=== PATIENT | female | born 2000 | race Caucasian/White ===

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

== ENCOUNTER → 2021-07-09 | Outpatient (CLI) | payer MEDICAID ==
[~2021-07-09] MED LIST changes: +METHACHOLINE CHLORIDE 100MG/VIAL IH ONE; +RT-ALBUTEROL SULF 2.5 MG/3 ML PRE-MIX VIAL INH ONE
--- NOTE | 2021-07-09 12:25 | Diagnostic Imaging Report ---
INDICATION: Shortness of air and chest discomfort. TIME OF EXAM: 10:39 AM Correlation is made with prior chest 12/20/2020. Heart size normal. Lungs appear to be clear although exposure is somewhat dark and overpenetrated. No effusion or pneumothorax is seen. IMPRESSION: No acute cardiopulmonary process is detected. Dictated by: Dictated on workstation # [id number]
== END ==
LOC: RT 08:00
PROVIDERS: ATTEND Internal Medicine Critical Care Medicine
DX: I27.20 Pulmonary hypertension, unspecified (principal)
CPT/HCPCS: 71046; 93306; 94070; 95070

== ENCOUNTER 2021-07-14 23:50 | Emergency (ER) | payer MEDICAID ==
[~2021-07-14] VITALS: Ht 162.5 cm; Wt 61.2 kg
[2021-07-14 23:50] VITALS: BP 104/79
[~2021-07-14 23:50] MED LIST changes: -METHACHOLINE CHLORIDE 100MG/VIAL IH ONE; -RT-ALBUTEROL SULF 2.5 MG/3 ML PRE-MIX VIAL INH ONE
[2021-07-15] MEDS ORDERED: ONDANSETRON 4 MG/2 ML (SDV) Z0FRAN IVP ONE (00:15)
[2021-07-15] MEDS ORDERED: FAMOTIDINE 20MG/2ML IV (PEPCID) IVP ONE (00:15)
[2021-07-15] MEDS ORDERED: LORazepam INJ 2 MG/ML (ATIVAN) VIAL IVP ONE (00:15)
[2021-07-15] MEDS ORDERED: NS IV 1000 ML 1,000 ML IV SCH (00:15)
--- NOTE | 2021-07-15 00:26 | ED GU-Female ---
General Chief Complaint: Abdominal/GI Problems Stated Complaint: CHEST PAIN;EMESIS;DIARRHEA Nursing Triage Note: Pt c/o n/v/d since 8pm tonight and chest pain and SOA. Pt also reports bilateral hand and feet tingling. Hx of asthma. Pt denies anxiety but stated "I take lorazepam for my heart" Source: patient Exam Limitations: no limitations History of Present Illness Date Seen by Provider: Jul 15, 2021 Time Seen by Provider: 23:45 Initial Comments Patient is 20 yo female with history of anxiety presents with nausea vomiting and diarrhea starting 3 hours prior to arrival. Patient also reports anxiety with tingling in hands and around mouth. No fever chills or sweats. No abdominal pain. No other acute symptoms or complaints. Timing/Duration: just prior to arrival Severity/Quality: mild Location: other Radiation: other Activities at Onset: other Sexual [place] History: other Modifying Factors: Improves With Other Associated Symptoms: other Allergies and Home Medications Allergies Coded Allergies: No Known Drug Allergies (Unverified , 03/24/19) Patient Home Medication List Home Medication List Reviewed: Yes Ondansetron (Ondansetron Odt) 4 Mg Tab.rapdis, 4 MG PO Q6H PRN for NAUSEA/VOMITING Prescribed by: DINORAH STEVENS on 05/06/19 1112 Prochlorperazine Maleate (Compazine) 10 Mg Tablet, 10 MG PO Q8H Prescribed by: BUCKY VILLA on 12/09/20 1419 Review of Systems Review of Systems Constitutional: see HPI EENTM: see HPI Respiratory: see HPI Cardiovascular: see HPI Gastrointestinal: see HPI Genitourinary: see HPI Musculoskeletal: see HPI Skin: see HPI Psychiatric/Neurological: See HPI Endocrine: See HPI Hematologic/Lymphatic: See HPI All Other Systemes Reviewed Negative Unless Noted: Yes Past Qxozdqm-Bjvpva-Xqpdhh Hx Patient Social History Tobacco Use?: Yes Use of E-Cig and/or Vaping dev: No Substance use?: No Alcohol Use?: No Pt feels they are or have been: No Immunizations Up To Date Influenza Vaccine Up-to-Date: Yes; Up-to-Date First/Initial COVID19 Vaccinat: SEPTEMBER 2020 Second COVID19 Vaccination Dar: yes Seasonal Allergies Seasonal Allergies: No Past Medical History Surgeries: No Respiratory: No Cardiac: No Neurological: No Genitourinary: No Gastrointestinal: No Musculoskeletal: No Endocrine: No HEENT: No Cancer: No Psychosocial: No Integumentary: No Blood Disorders: No Physical Exam Vital Signs Vital Signs - First Documented 07/14/21 23:50 Temp 37.0 Pulse 75 Resp 22 B/P (MAP) 104/79 (87) Pulse Ox 100 O2 Delivery Room Air Capillary Refill : Less Than 3 Seconds Height, Weight, BMI Height: '" Weight: lbs. oz. kg; 23.00 BMI Method: General Appearance: WD/WN, no apparent distress, other (Anxious) HEENT: PERRL/EOMI, normal ENT inspection Neck: full range of motion, supple Cardiovascular: normal peripheral pulses, regular rate, rhythm Respiratory: chest non-tender, lungs clear Gastrointestinal: non tender, soft Neurologic/Psychiatric: alert, normal mood/affect, oriented x 3 Focused Exam Sepsis Stage: Ruled Out Progress/Results/Core Measures Suspected Sepsis SIRS Temperature: Pulse: 75 Respiratory Rate: 22 Laboratory Tests 07/15/21 00:20: White Blood Count 13.7H Blood Pressure 104 /79 Mean: 87 Laboratory Tests 07/15/21 00:20: Creatinine 0.83, Platelet Count 200, Total Bilirubin 0.8 Results/Orders Lab Results Laboratory Tests Test 07/15/21 00:20 Range/Units White Blood Count 13.7 H 4.3-11.0 10^3/uL Red Blood Count 5.24 H 3.80-5.11 10^6/uL Hemoglobin 15.6 11.5-16.0 g/dL Hematocrit 43 35-52 % Mean Corpuscular Volume 81 80-99 fL Mean Corpuscular Hemoglobin 30 25-34 pg Mean Corpuscular Hemoglobin Concent 37 H 32-36 g/dL Red Cell Distribution Width 11.9 10.0-14.5 % Platelet Count 200 130-400 10^3/uL Mean Platelet Volume 9.0 9.0-12.2 fL Immature Granulocyte % (Auto) 0 % Neutrophils (%) (Auto) 90 H 42-75 % Lymphocytes (%) (Auto) 5 L 12-44 % Monocytes (%) (Auto) 5 0-12 % Eosinophils (%) (Auto) 0 0-10 % Basophils (%) (Auto) 0 0-10 % Neutrophils # (Auto) 12.4 H 1.8-7.8 10^3/uL Lymphocytes # (Auto) 0.6 L 1.0-4.0 10^3/uL Monocytes # (Auto) 0.6 0.0-1.0 10^3/uL Eosinophils # (Auto) 0.0 0.0-0.3 10^3/uL Basophils # (Auto) 0.0 0.0-0.1 10^3/uL Immature Granulocyte # (Auto) 0.1 0.0-0.1 10^3/uL Neutrophils % (Manual) 86 % Lymphocytes % (Manual) 5 % Monocytes % (Manual) 2 % Band Neutrophils 6 % Atypical Lymphocytes 1 % Platelet Estimate NORMAL Blood Morphology Comment NORMAL Sodium Level 136 135-145 MMOL/L Potassium Level 3.7 3.6-5.0 MMOL/L Chloride Level 100 98-107 MMOL/L Carbon Dioxide Level 20 L 21-32 MMOL/L Anion Gap 16 H 5-14 MMOL/L Blood Urea Nitrogen 18 7-18 MG/DL Creatinine 0.83 0.60-1.30 MG/DL Estimat Glomerular Filtration Rate 104 BUN/Creatinine Ratio 22 Glucose Level 106 H 70-105 MG/DL Calcium Level 10.2 H 8.5-10.1 MG/DL Corrected Calcium 8.5-10.1 MG/DL Total Bilirubin 0.8 0.1-1.0 MG/DL Aspartate Amino Transf (AST/SGOT) 26 5-34 U/L Alanine Aminotransferase (ALT/SGPT) 17 0-55 U/L Alkaline Phosphatase 58 40-136 U/L Total Protein 8.3 H 6.4-8.2 GM/DL Albumin 5.1 H 3.2-4.5 GM/DL My Orders Orders - BUCKY VILLA DO Ekg Tracing (07/15/21 00:01) Cbc With Automated Diff (07/15/21 00:13) Comprehensive Metabolic Panel (07/15/21 00:13) Ua Culture If Indicated (07/15/21 00:13) Urine Bedside (07/15/21 00:13) Ns Iv 1000 Ml (Sodium Chloride 0.9%) (07/15/21 00:15) Ondansetron Injection (Zofran Injectio (07/15/21 00:15) Lorazepam Injection (Ativan Injection) (07/15/21 00:15) Famotidine Injection (Pepcid Injection) (07/15/21 00:15) Manual Differential (07/15/21 00:20) Medications Given in ED Current Medications Medications Dose Ordered Sig/Davina Route Start Time Stop Time Status Last Admin Dose Admin Famotidine 20 mg ONCE ONCE IVP 07/15/21 00:15 07/15/21 00:16 DC 07/15/21 00:25 20 MG Lorazepam 1 mg ONCE ONCE IVP 07/15/21 00:15 07/15/21 00:16 DC 07/15/21 00:26 1 MG Ondansetron HCl 4 mg ONCE ONCE IVP 07/15/21 00:15 07/15/21 00:16 DC 07/15/21 00:25 4 MG Vital Signs/I&O 07/14/21 23:50 Temp 37.0 Pulse 75 Resp 22 B/P (MAP) 104/79 (87) Pulse Ox 100 O2 Delivery Room Air Capillary Refill : Less Than 3 Seconds Blood Pressure Mean: 87 Departure Communication (Admissions) Lab reviewed. Abdomen is soft non-tender. Symptoms consistent with GI illness prevalent in the community with secondary study reaction. IV fluids antiemetics and Ativan given with clinical improvement. Recommendations supportive care watchful waiting PCP follow-up. Return precautions reviewed. Patient verbalizes understanding agreement discharge instructions prior to departure. Impression Primary Impression: Nausea and vomiting Additional Impressions: Diarrhea Anxiety reaction Disposition: 01 HOME, SELF-CARE Condition: Stable Departure-Patient Inst. Decision time for Depature: 01:04 Referrals: KAYLYN BRAVO APRN (PCP) Primary Care Physician [facility] (Family) Primary Care Physician Patient Instructions: Generalized Anxiety Disorder (DC), Nausea and Vomiting, Adult, Diarrhea in Adolescents and Adults Add. Discharge Instructions: You were evaluated in the emergency department for nausea vomiting and diarrhea. Your symptoms are consistent with a stomach illness prevalent in the community. Please take newly prescribed medication as directed, drink clear liquids only for the next 6 to 12 hours and follow-up with your PCP in 2 to 3 days if symptoms persist. Return to the ED if new or worsening symptoms All discharge instructions reviewed with patient and/or family. Voiced understanding. Scripts Ondansetron (Ondansetron Odt) 4 Mg Tab.rapdis 4 MG PO Q6H, #10 TAB Prov: BUCKY VILLA DO 07/15/21 BUCKY VILLA DO Jul 15, 2021 00:25
[2021-07-15 00:38] LABS: BASOPHILS % (AUTO) 0 % (0-10); EOSINOPHILS % (AUTO) 0 % (0-10); HEMATOCRIT 43 % (35-52); HEMOGLOBIN 15.6 g/dL (11.5-16.0); LYMPHOCYTES # (AUTO) 0.6 10^3/uL (1.0-4.0); LYMPHOCYTES % (AUTO) 5 % (12-44); MEAN CORPUSCULAR HEMOGLOBIN 30 pg (25-34); MEAN CORPUSCULAR HGB CONC 37 g/dL (32-36); MEAN CORPUSCULAR VOLUME 81 fL (80-99); MONOCYTES # (AUTO) 0.6 10^3/uL (0.0-1.0); MONOCYTES % (AUTO) 5 % (0-12); NEUTROPHILS # (AUTO) 12.4 10^3/uL (1.8-7.8); NEUTROPHILS % (AUTO) 90 % (42-75); PLATELET COUNT 200 10^3/uL (130-400); WHITE BLOOD COUNT 13.7 10^3/uL (4.3-11.0)
[2021-07-15 00:57] LABS: ALANINE AMINOTRANSFERASE 17 U/L (0-55); ALBUMIN 5.1 GM/DL (3.2-4.5); ALKALINE PHOSPHATASE 58 U/L (40-136); BILIRUBIN,TOTAL 0.8 MG/DL (0.1-1.0); BUN/CREATININE RATIO 22; CALCIUM 10.2 MG/DL (8.5-10.1); CARBON DIOXIDE 20 MMOL/L (21-32); CHLORIDE 100 MMOL/L (98-107); CREATININE SERUM 0.83 MG/DL (0.60-1.30); GFR ESTIMATED 104; GLUCOSE 106 MG/DL (70-105); POTASSIUM 3.7 MMOL/L (3.6-5.0); SODIUM 136 MMOL/L (135-145); TOTAL PROTEIN 8.3 GM/DL (6.4-8.2)
[2021-07-15 01:00] LABS: ATYPICAL LYMPHOCYTES 1 %; BAND NEUTROPHILS 6 %; LYMPHOCYTES % (MANUAL) 5 %; MONOCYTES % (MANUAL) 2 %; NEUTROPHILS % (MANUAL) 86 %; PLATELET ESTIMATE NORMAL; RBC MORPH NORMAL
[2021-07-15] MEDS ORDERED: ONDA4TAB11 PO (01:05)
[2021-07-15] MEDS ORDERED: RX-ONDANSETRON 4 MG ODT (ZOFRAN) PPK #4 PO PRN (01:15)
[2021-07-15 01:21] LABS: BILIRUBIN,URINE NEGATIVE (NEGATIVE); CLARITY,URINE SL CLOUDY; COLOR,URINE YELLOW; GLUCOSE, URINE (UA) NEGATIVE (NEGATIVE); KETONES,URINE 2+ (NEGATIVE); LEUKOCYTE ESTERASE ,URINE TRACE (NEGATIVE); NITRITE,URINE NEGATIVE (NEGATIVE); PH,URINE 8.5 (5-9); PROTEIN,URINE TRACE (NEGATIVE)
[2021-07-15 01:28] LABS: BACTERIA,URINE FEW /HPF; RBC,URINE RARE /HPF; WBC,URINE 0-2 /HPF
== END 2021-07-15 01:18 | disposition home or self-care (01) ==
LOC: EDUNIT# 23:50 → ER FS 23:52
DX: R11.2 Nausea with vomiting, unspecified (principal); R19.7 Diarrhea, unspecified; F41.1 Generalized anxiety disorder; Z72.0 Tobacco use
CPT/HCPCS: 36415; 80053; 81000; 84703; 85007; 85027; 93005; 96374; 96375

== ENCOUNTER 2021-11-17 18:50 | Emergency (ER) | payer OTHER, MEDICAID ==
[~2021-11-17] VITALS: Ht 162.5 cm; Wt 62.6 kg
--- NOTE | 2021-11-17 19:53 | ED Head Injury ---
General Chief Complaint: Head/Cervical Problems Stated Complaint: HEAD INJ Nursing Triage Note: Pt arrival per POV ambulating to ED 2 reporting hitting the top of her head on rear view mirror 11/16/21 at 1000 while trying to "scare" someone. Sx have included: headache, blurry vision, and neck pain. Denies nausea and vomiting. Pt reports she begins vacation tomorrow and just wanted checked out. Source: patient History of Present Illness Date Seen by Provider: Nov 17, 2021 Time Seen by Provider: 19:18 Initial Comments 20-year-old female presenting with complaints of headache and dizziness with nausea. She was trying on her bridesmaid dress yesterday around 3 PM and hit the top of her head on the mirror. She denies having any loss of consciousness. She did have a headache as well as neck pain and dizziness with nausea. She felt her symptoms were worse after she had physically exerted herself and tried to run and exercise. Since she is leaving for vacation this week she wanted to get checked out before that and make sure everything was okay. Occurred: yesterday Severity: moderate Location: frontal Method of Injury: direct blow Loss of Consciousness: no loss of consciousness Associated Systoms: No Chest Pain, No Cough, No Diaphoresis, No Fever/Chills; Headaches; No Loss of Appetite, No Malaise; Nausea/Vomiting (Nausea but no vomiting); No Seizure, No Shortness of Air, No Syncope, No Weakness Allergies and Home Medications Allergies Coded Allergies: No Known Drug Allergies (Unverified , 03/24/19) Patient Home Medication List Home Medication List Reviewed: Yes Ondansetron (Ondansetron Odt) 4 Mg Tab.rapdis, 4 MG PO Q6H PRN for NAUSEA/VOMITING Prescribed by: DINORAH STEVENS on 05/06/19 1112 Ondansetron (Ondansetron Odt) 4 Mg Tab.rapdis, 4 MG PO Q6H Prescribed by: BUCKY VILLA on 07/15/21 0105 Prochlorperazine Maleate (Compazine) 10 Mg Tablet, 10 MG PO Q8H Prescribed by: BUCKY VILLA on 12/09/20 1419 Review of Systems Review of Systems Constitutional: No chills; dizziness (Worse with looking around); No fever Eyes: Denies Blurred Vision, Denies Pain, Denies Photophobia, Denies Vision Lorena nges Ears, Nose, Mouth, Throat: no symptoms reported Respiratory: no symptoms reported Cardiovascular: no symptoms reported Gastrointestinal: see HPI Genitourinary: no symptoms reported Musculoskeletal: neck pain Skin: No rash Psychiatric/Neurological: Headache Past Ejiuzfr-Xefttl-Uqfpwz Hx Patient Social History Tobacco Use?: No Smoking Status: Never a Smoker Substance use?: No Alcohol Use?: No Pt feels they are or have been: No Immunizations Up To Date First/Initial COVID19 Vaccinat: yes Second COVID19 Vaccination Dar: yes COVID19 Vaccine Rn Residential: Unsure Seasonal Allergies Seasonal Allergies: No Past Medical History Surgery/Hospitalization HX: asthma, pulmonary HTN Surgeries: No Respiratory: No Cardiac: No Neurological: No Genitourinary: No Gastrointestinal: No Musculoskeletal: No Endocrine: No HEENT: No Cancer: No Psychosocial: No Integumentary: No Blood Disorders: No Physical Exam Vital Signs Vital Signs - First Documented 11/17/21 19:00 Temp 37.2 Pulse 57 Resp 15 B/P (MAP) 120/73 (89) Pulse Ox 99 O2 Delivery Room Air Capillary Refill : Less Than 3 Seconds Height, Weight, BMI Height: '" Weight: lbs. oz. kg; 23.00 BMI Method: General Appearance: WD/WN, no apparent distress HEENT: PERRL/EOMI, normal ENT inspection, TMs normal, pharynx normal, other (Negative vazquez sign, negative raccoon sign, negative CSF otorrhea, negative CSF rhinorrhea) Neck: full range of motion, supple, tender lateral (tender to palpation over the muscles in the posterior neck without step off or crepitus) Cardiovascular: normal peripheral pulses, regular rate, rhythm Respiratory: chest non-tender, lungs clear, normal breath sounds, no respiratory distress, no accessory muscle use Gastrointestinal: normal bowel sounds, non tender, soft, no pulsatile mass Back: no CVA tenderness, no vertebral tenderness Extremities: normal range of motion, non-tender, normal capillary refill Psychiatric: alert, oriented x 3 Cra[place] Nerves: normal hearing, normal speech, PERRL Coordination/Gait: normal gait Motor/Sensory: no motor deficit, no sensory deficit Skin: normal color, warm/dry [place] Coma Score Best Eye Response: (4) Open Spontaneously Best Verbal Response: (5) Oriented Best Motor Response: (6) Obeys Commands Marixa Total: 15 Progress/Results/Core Measures Results/Orders Vital Signs/I&O 11/17/21 11/17/21 19:00 19:56 Temp 37.2 37.2 Pulse 57 56 Resp 15 16 B/P (MAP) 120/73 (89) 118/70 Pulse Ox 99 99 O2 Delivery Room Air Room Air Blood Pressure Mean: 89 Progress Progress Note : Progress Note Reassured patient about exam. No findings consistent with intracranial hemorrhage or skull fracture. She does appear to be exhibiting symptoms of concussion. Counseled on management and follow-up and return precautions. Currently she does not indications for radiation exposure for CT scan of her head or cervical spine. Departure Impression Primary Impression: Closed head injury without loss of consciousness Qualified Codes: S09.90XA - Unspecified injury of head, initial encounter Additional Impression: Concussion Qualified Codes: S06.0X0A - Concussion without loss of consciousness, initial encounter Disposition: HOME, SELF-CARE Condition: Stable Departure-Patient Inst. Decision time for Depature: 19:50 Referrals: KAYLYN BRAVO APRN (PCP) Primary Care Physician [facility] (Family) Primary Care Physician Patient Instructions: Minor Head Injury, Adult ED, Concussion, Adult ED Add. Discharge Instructions: Stable hydrated and drink plenty of fluids. Plenty of rest and avoid strenuous exercise or activity. At work and at home avoid using your phone, computer screens or TV. This can aggravate and exacerbate your headache and concussion symptoms. If you have worsening symptoms instead of improving then return or check with clinic All discharge instructions reviewed with patient and/or family. Voiced understanding. Work/School Note: Work Release Form Date Seen in the Emergency Department: Nov 17, 2021 Return to Work: Nov 18, 2021 Restrictions: No Sports-Until Released Other Restrictions Listed Below: Avoid using computer or strenuos activity for 3 days DINORAH STEVENS MD Nov 17, 2021 19:53
[2021-11-17 19:56] VITALS: BP 118/70
== END 2021-11-17 19:56 | disposition home or self-care (01) ==
LOC: EDUNIT# 18:50 → ER FS 18:51
DX: S06.0X0A Concussion without loss of consciousness, initial encounter (principal); M54.2 Cervicalgia; R40.2140 Coma scale, eyes open, spontaneous, unspecified time; R40.2250 Coma scale, best verbal response, oriented, unspecified time; R40.2360 Coma scale, best motor response, obeys commands, unspecified time; W22.8XXA Striking against or struck by other objects, initial encounter
CPT/HCPCS: 99281

== ENCOUNTER 2021-11-28 22:01 | Emergency (ER) | payer MEDICAID, OTHER ==
[~2021-11-28] VITALS: Ht 170 cm; Wt 63.0 kg
[2021-11-28 22:41] LABS: BILIRUBIN,URINE NEGATIVE (NEGATIVE); CLARITY,URINE CLEAR; COLOR,URINE YELLOW; GLUCOSE, URINE (UA) NEGATIVE (NEGATIVE); KETONES,URINE NEGATIVE (NEGATIVE); LEUKOCYTE ESTERASE ,URINE NEGATIVE (NEGATIVE); NITRITE,URINE NEGATIVE (NEGATIVE); PROTEIN,URINE NEGATIVE (NEGATIVE)
[2021-11-28 22:47] LABS: BASOPHILS % (AUTO) 0 % (0-10); EOSINOPHILS # (AUTO) 0.1 10^3/uL (0.0-0.3); EOSINOPHILS % (AUTO) 2 % (0-10); HEMATOCRIT 39 % (35-52); HEMOGLOBIN 13.9 g/dL (11.5-16.0); LYMPHOCYTES # (AUTO) 1.7 10^3/uL (1.0-4.0); LYMPHOCYTES % (AUTO) 26 % (12-44); MEAN CORPUSCULAR HEMOGLOBIN 30 pg (25-34); MEAN CORPUSCULAR HGB CONC 36 g/dL (32-36); MEAN CORPUSCULAR VOLUME 83 fL (80-99); MEAN PLATELET VOLUME 9.3 fL (9.0-12.2); MONOCYTES # (AUTO) 0.5 10^3/uL (0.0-1.0); MONOCYTES % (AUTO) 7 % (0-12); NEUTROPHILS # (AUTO) 4.2 10^3/uL (1.8-7.8); NEUTROPHILS % (AUTO) 65 % (42-75); PLATELET COUNT 183 10^3/uL (130-400); WHITE BLOOD COUNT 6.5 10^3/uL (4.3-11.0)
[2021-11-28 22:55] LABS: BACTERIA,URINE FEW /HPF
[2021-11-28] MEDS ORDERED: PANTOPRAZOLE 40 MG (PROTONIX) VIAL IV STA (22:56)
[2021-11-28] MEDS ORDERED: fentaNYL INJ 100 MCG/2 ML AMP IVP STA (22:56)
[2021-11-28] MEDS ORDERED: NS IV 1000 ML 1,000 ML IV STA (22:58)
--- NOTE | 2021-11-28 23:00 | ED Abdominal Pain ---
General Chief Complaint: Abdominal/GI Problems Stated Complaint: ABD PAIN Nursing Triage Note: Patient states abdominal pain x1 week. patient states on a flight home, cramping, states better upon arrival. Source of Information: Patient History of Present Illness Date Seen by Provider: Nov 28, 2021 Time Seen by Provider: 22:37 Initial Comments 20-year-old female presenting with complaints of abdominal pain left side of her abdomen that has been going on for over a week. She felt like the pain went up into her chest at times. She had recently been on an airplane and felt like the pain was worse this afternoon when she was flying home. She felt like it was a cramping and sharp pain. She had some nausea with the pain as well. By the time she got home. To [facility] [facility]o the pain had improved but her family insisted that she come be evaluated in the emergency department. She states she has been told before that she had ovarian cysts that cause pain somewhat similar as well as also been told that she had reflux. She denies any vaginal bleeding or discharge. There is no pain with urination or bowel movement. She denies fever, chills, cough, vomiting, pain with urination Timing/Duration: 1 Week Severity/Quality: Severe, Cramping, Sharp Location: LUQ, LLQ, Flank (Left) Radiation: Flank (Left flank) Activities at Onset: None Modifying Factors: Worsens With Movement Associated Symptoms: No Back Pain; Chest Pain (Pain goes into her left chest at times); No Diaphoresis, No Fever/Chills, No Fatigue, No Headache; Heartburn; No Nausea/Vomiting, No Rash, No Shortness of Air, No Swelling/Mass in Abdomen, No Syncope, No Weakness Allergies and Home Medications Allergies Coded Allergies: No Known Drug Allergies (Unverified , 03/24/19) Patient Home Medication List Home Medication List Reviewed: Yes Ondansetron (Ondansetron Odt) 4 Mg Tab.rapdis, 4 MG PO Q6H PRN for NAUSEA/VOMITING Prescribed by: DINORAH STEVENS on 05/06/19 1112 Ondansetron (Ondansetron Odt) 4 Mg Tab.rapdis, 4 MG PO Q6H Prescribed by: BUCKY VILLA on 07/15/21 0105 Prochlorperazine Maleate (Compazine) 10 Mg Tablet, 10 MG PO Q8H Prescribed by: BUCKY VILLA on 12/09/20 1419 Review of Systems Review of Systems Constitutional: No chills, No fever EENTM: No Symptoms Reported Respiratory: No Symptoms Reported Cardiovascular: See HPI Gastrointestinal: See HPI Genitourinary: No Symptoms Reported Musculoskeletal: no symptoms reported Skin: no symptoms reported Psychiatric/Neurological: No Symptoms Reported Endocrine: No Symptoms Reported Past Qmljvrf-Qtfutm-Pwxzoe Hx Immunizations Up To Date First/Initial COVID19 Vaccinat: yes Second COVID19 Vaccination Dar: yes Third COVID19 Vaccination Date: yes Seasonal Allergies Seasonal Allergies: No Past Medical History Surgery/Hospitalization HX: asthma, pulmonary HTN Surgeries: No Respiratory: No Cardiac: No Neurological: No Genitourinary: No Gastrointestinal: No Musculoskeletal: No Endocrine: No HEENT: No Cancer: No Psychosocial: No Integumentary: No Blood Disorders: No Physical Exam Vital Signs Vital Signs - First Documented 11/28/21 22:15 Temp 36.9 Pulse 91 Resp 18 B/P (MAP) 100/59 (73) Pulse Ox 95 O2 Delivery Room Air Capillary Refill : Less Than 3 Seconds Height/Weight/BMI Height: '" Weight: lbs. oz. kg; 21.00 BMI Method: General Appearance: WD/WN, no apparent distress HEENT: PERRL/EOMI, pharynx normal Neck: non-tender, full range of motion, supple, normal inspection Respiratory: chest non-tender, lungs clear, normal breath sounds, no respiratory distress, no accessory muscle use Cardiovascular: normal peripheral pulses, regular rate, rhythm Gastrointestinal: normal bowel sounds, soft, no pulsatile mass; No guarding, No rebound; tenderness (Left upper quadrant and left flank) Rectal: deferred Extremities: normal range of motion, non-tender, normal capillary refill Back: no CVA tenderness Neurologic/Psychiatric: sofa cover inspector II-XII nml as tested, alert, oriented x 3 Skin: normal color, warm/dry Progress/Results/Core Measures Results/Orders Lab Results Laboratory Tests Test 11/28/21 22:15 Range/Units White Blood Count 6.5 4.3-11.0 10^3/uL Red Blood Count 4.71 3.80-5.11 10^6/uL Hemoglobin 13.9 11.5-16.0 g/dL Hematocrit 39 35-52 % Mean Corpuscular Volume 83 80-99 fL Mean Corpuscular Hemoglobin 30 25-34 pg Mean Corpuscular Hemoglobin Concent 36 32-36 g/dL Red Cell Distribution Width 11.8 10.0-14.5 % Platelet Count 183 130-400 10^3/uL Mean Platelet Volume 9.3 9.0-12.2 fL Immature Granulocyte % (Auto) 0 % Neutrophils (%) (Auto) 65 42-75 % Lymphocytes (%) (Auto) 26 12-44 % Monocytes (%) (Auto) 7 0-12 % Eosinophils (%) (Auto) 2 0-10 % Basophils (%) (Auto) 0 0-10 % Neutrophils # (Auto) 4.2 1.8-7.8 10^3/uL Lymphocytes # (Auto) 1.7 1.0-4.0 10^3/uL Monocytes # (Auto) 0.5 0.0-1.0 10^3/uL Eosinophils # (Auto) 0.1 0.0-0.3 10^3/uL Basophils # (Auto) 0.0 0.0-0.1 10^3/uL Immature Granulocyte # (Auto) 0.0 0.0-0.1 10^3/uL Urine Color YELLOW Urine Clarity CLEAR Urine pH 6.0 5-9 Urine Specific Chandler 1.025 H 1.016-1.022 Urine Protein NEGATIVE NEGATIVE Urine Glucose (UA) NEGATIVE NEGATIVE Urine Ketones NEGATIVE NEGATIVE Urine Nitrite NEGATIVE NEGATIVE Urine Bilirubin NEGATIVE NEGATIVE Urine Urobilinogen 0.2 < = 1.0 MG/DL Urine Leukocyte Esterase NEGATIVE NEGATIVE Urine RBC (Auto) NEGATIVE NEGATIVE Urine RBC 2-5 H /HPF Urine WBC 5-10 H /HPF Urine Squamous Epithelial Cells 10-25 H /HPF Urine Crystals NONE /LPF Urine Bacteria FEW H /HPF Urine Casts NONE /LPF Urine Mucus NEGATIVE /LPF Urine Culture Indicated YES Sodium Level 138 135-145 MMOL/L Potassium Level 3.6 3.6-5.0 MMOL/L Chloride Level 102 98-107 MMOL/L Carbon Dioxide Level 27 21-32 MMOL/L Anion Gap 9 5-14 MMOL/L Blood Urea Nitrogen 15 7-18 MG/DL Creatinine 0.89 0.60-1.30 MG/DL Estimat Glomerular Filtration Rate 96 BUN/Creatinine Ratio 17 Glucose Level 103 70-105 MG/DL Calcium Level 9.5 8.5-10.1 MG/DL Corrected Calcium 8.5-10.1 MG/DL Total Bilirubin 0.4 0.1-1.0 MG/DL Aspartate Amino Transf (AST/SGOT) 19 5-34 U/L Alanine Aminotransferase (ALT/SGPT) 13 0-55 U/L Alkaline Phosphatase 58 40-136 U/L Total Protein 7.4 6.4-8.2 GM/DL Albumin 4.6 H 3.2-4.5 GM/DL Lipase 25 8-78 U/L My Orders Orders - DINORAH STEVENS MD Comprehensive Metabolic Panel (11/28/21 22:09) Lipase (11/28/21 22:09) Ua Culture If Indicated (11/28/21 22:09) Ed Iv/Invasive Line Start (11/28/21 22:09) Cbc With Automated Diff (11/28/21 22:09) Urine Bedside (11/28/21 22:09) Urine Culture (11/28/21 22:15) Ct Abdomen/Pelvis W (11/28/21 22:56) Pantoprazole Injection (Protonix Injecti (11/28/21 22:56) Fentanyl Inj (Sublimaze Injection) (11/28/21 22:56) Ns Iv 1000 Ml (Sodium Chloride 0.9%) (11/28/21 22:58) Iohexol Injection (Omnipaque 350 Mg/Ml 1 (11/28/21 23:15) Received Contrast (Hold Metformin- Contr (11/28/21 23:15) Sodium Chloride Flush (Catheter Flush Sy (11/28/21 23:15) Ns (Ivpb) (Sodium Chloride 0.9% Ivpb Bag (11/28/21 23:15) Medications Given in ED Current Medications Medications Dose Ordered Sig/Davina Route Start Time Stop Time Status Last Admin Dose Admin Iohexol 100 ml ONCE ONCE IV 11/28/21 23:15 11/28/21 23:16 DC 11/28/21 23:19 100 ML Sodium Chloride 10 ml NEEDED PRN IV 11/28/21 23:15 11/29/21 00:43 DC 11/28/21 23:20 10 ML Sodium Chloride 100 ml ONCE ONCE IV 11/28/21 23:15 11/28/21 23:16 DC 11/28/21 23:19 80 ML Vital Signs/I&O 8/4/22 8/5/22 22:15 00:41 Temp 36.9 36.9 Pulse 91 52 Resp 18 18 B/P (MAP) 100/59 (73) 114/62 Pulse Ox 95 99 O2 Delivery Room Air Room Air Blood Pressure Mean: 73 Progress Progress Note #1: Progress Note Check urine and labs to look for her abdominal pain. Since she was still having pain with palpation of her abdomen pelvis will order CT scan to look for more severe cause such as ovarian cyst, colitis, diverticulitis, bowel obstruction, perforated ulcer Progress Note #2: Progress Note Labs do not show any acute significant abnormality to account for her pain. Her urine was concentrated to go along with some dehydration since she had an elevated specific gravity of 1.025. Her CT scan was showing a normal appendix. There is a large amount of stool in the colon greatest at the rectum measuring 7 cm suggesting constipation. No pneumoperitoneum, free fluid, acute inflammatory changes. Will treat symptomatically and encourage laxatives such as MiraLAX and hydration. Patient has been resting comfortably in the ED. Counseled on follow-up and return precautions. Diagnostic Imaging Diagonstic Imaging: CT Plain Films/CT/US/NM/MRI: abdomen, pelvis Comments Impression: The appendix is normal. There is a large amount of stool in the colon greatest at the rectum. Measuring 7 cm suggesting constipation. No pneumoperitoneum, free fluid, or acute inflammatory changes are seen involving the bowel. Read by radiologist Dr. Thai Griffin MD. Study read at 1173 and faxed at [id number] Reviewed: Reviewed Night [facility] Study Departure Impression Primary Impression: Constipation Qualified Codes: K59.00 - Constipation, unspecified Additional Impression: Left sided abdominal pain Disposition: HOME, SELF-CARE Condition: Stable Departure-Patient Inst. Decision time for Depature: 00:35 Referrals: KAYLYN BRAVO APRN (PCP) Primary Care Physician [facility] (Family) Primary Care Physician Patient Instructions: Flank Pain ED, Constipation, Adult ED Add. Discharge Instructions: Stay well-hydrated and drink plenty of fluids. Consider using MiraLAX or a laxative to help get your bowels to move more regularly. Follow-up through the clinic for continued pain and symptoms. If your pain persist or worsens they may want you to have a scope done to look at the lining of your stomach or colon. All discharge instructions reviewed with patient and/or family. Voiced understanding. DINORAH STEVENS MD Nov 28, 2021 23:00
[2021-11-28 23:01] LABS: BUN/CREATININE RATIO 17; CARBON DIOXIDE 27 MMOL/L (21-32); CHLORIDE 102 MMOL/L (98-107); CREATININE SERUM 0.89 MG/DL (0.60-1.30); GFR ESTIMATED 96; POTASSIUM 3.6 MMOL/L (3.6-5.0); SODIUM 138 MMOL/L (135-145)
[2021-11-28 23:02] LABS: ALANINE AMINOTRANSFERASE 13 U/L (0-55); ALBUMIN 4.6 GM/DL (3.2-4.5); ALKALINE PHOSPHATASE 58 U/L (40-136); BILIRUBIN,TOTAL 0.4 MG/DL (0.1-1.0); CALCIUM 9.5 MG/DL (8.5-10.1); GLUCOSE 103 MG/DL (70-105); LIPASE 25 U/L (8-78); TOTAL PROTEIN 7.4 GM/DL (6.4-8.2)
[2021-11-28] MEDS ORDERED: IOHEXOL 350 MG/ML 100 ML (OMNIPAQUE 350) VIAL IV ONE (23:15)
[2021-11-28] MEDS ORDERED: HOLD METFORMIN - RECEIVED CONTRAST 20 ML VIAL IV SCH (23:15)
[2021-11-28] MEDS ORDERED: NS 100 ML (IVPB) BAG IV ONE (23:15)
[2021-11-28] MEDS: CATHETER FLUSH 10 ML SYR IV PRN ×2 (23:19→23:20)
[2021-11-29 00:41] VITALS: BP 114/62
--- NOTE | 2021-11-29 07:12 | Diagnostic Imaging Report ---
PROCEDURE: CT abdomen and pelvis with contrast. TECHNIQUE: Multiple contiguous axial images were obtained through the abdomen and pelvis after administration of intravenous contrast. Auto Exposure Controls were utilized during the CT exam to meet ALARA standards for radiation dose reduction. All CT scans use one or more of the following dose optimizing techniques: automated exposure control, MA and/or KvP adjustment based on patient size and exam type or iterative reconstruction. INDICATION: Left upper quadrant pain and flank pain. CT abdomen and pelvis with contrast 11/28/2021 FINDINGS: Lung bases clear. Liver and spleen unremarkable. Pancreas and adrenal glands unremarkable. Gallbladder normal. The kidneys unremarkable. There is a fair amount of stool throughout the colon with a large amount of stool in the rectosigmoid. Findings likely due to constipation with fecal impaction not excluded. Minimal free fluid in the pelvis likely physiologic. There is no free air. Multiple cystic lesions in the adnexa bilaterally likely ovarian. There is minimal wall thickening of the urinary bladder likely due to under distention with cystitis not excluded. This is not mentioned by the [facility] report. Visualized portions of the appendix normal. There is no acute osseous abnormality. IMPRESSION: 1. Findings of severe constipation with possible mild fecal impaction at the rectosigmoid. 2. Physiologic changes in the pelvis with wall thickening of the urinary bladder likely due to incomplete distention but cystitis should be clinically excluded. Dictated by: Dictated on workstation # [id number]
== END 2021-11-29 00:43 | disposition home or self-care (01) ==
LOC: EDUNIT# 22:01 → ER FS 22:02
DX: K59.00 Constipation, unspecified (principal); Z28.310 Unvaccinated for COVID-19
CPT/HCPCS: 36415; 74177; 80053; 81000; 83690; 84703; 85025; 87088

== ENCOUNTER → 2022-03-14 | Outpatient (CLI) | payer MEDICAID ==
--- NOTE | 2022-03-14 12:10 | Diagnostic Imaging Report ---
INDICATION: Wrist pain. Peripheral sclerosis. This is nonspecific but has a benign appearance. No associated fractures. Remaining osseous structures intact. No dislocations. IMPRESSION: 1. Benign-appearing cystic lesion in the scaphoid. No fractures identified. Dictated by: Dictated on workstation # [id number]
== END ==
LOC: RAD FS 11:20
PROVIDERS: ATTEND Nurse Practitioner
DX: M85.642 Other cyst of bone, left hand (principal)
CPT/HCPCS: 73110

== ENCOUNTER 2022-04-10 05:38 | Outpatient (CLI) | payer MEDICAID ==
[~2022-04-10] VITALS: Ht 162 cm; Wt 62.7 kg
[2022-04-10] MEDS ORDERED: RT-ALBUINH INH (12:39)
== END 2022-04-10 12:45 ==
LOC: PREOP 05:38
PROVIDERS: ATTEND Orthopaedic Surgery
DX: Z01.818 Encounter for other preprocedural examination (principal); M67.432 Ganglion, left wrist

== ENCOUNTER 2022-04-16 08:28 | Day surgery (SDC) | payer MEDICAID ==
[2022-04-16] VITALS (10 sets, daily range): BP systolic 97–130; BP diastolic 60–84
[~2022-04-16] VITALS: Ht 162 cm; Wt 62.7 kg
[~2022-04-16 08:28] MED LIST changes: +HYDROcodone/APAP 7.5 MG/325 MG (LORTAB, LORCET PLUS) TABLET PO PRN; +RT-ALBUINH INH
[2022-04-16] MEDS ORDERED: ceFAZolin INJECTION 2,000 MG in NS (IVPB) 50 ML IV ONE (09:00)
[2022-04-16] MEDS ORDERED: LACTATED RINGERS 1,000 ML IV PRN (09:00)
--- NOTE | 2022-04-16 09:09 | Progress Note-Pre Operative ---
Pre-Operative Progress Note Date of Available H&P: Apr 04, 2022 Date H&P Reviewed: Apr 16, 2022 Time H&P Reviewed: 09:08 Changes from last HP none Pre-Operative Diagnosis: left wrist volar ganglion cyst HERI NUNES MD Apr 16, 2022 09:09
--- NOTE | 2022-04-16 09:10 | Progress Note-Post Operative ---
Post-Operative Progess Note Surgeon (s)/Bath Steward (s) Surgeon HERI NUNES MD Bath Steward: Quan Wallace Pre-Operative Diagnosis left wrist volar ganglion cyst Post-Operative Diagnosis left wrist volar ganglion cyst Procedure & Operative Findings Date of Procedure 04/16/22 Procedure Performed/Findings left wrist volar ganglion cyst excision Anesthesia Type GETA Estimated Blood Loss Estimated blood loss (mL): minimal Specimens/Packing Specimens Removed none Packing: none HERI NUNES MD Apr 16, 2022 09:10
[2022-04-16] MEDS ORDERED: BUPIVACAINE 0.5% 30 ML (SENSORCAINE) VIAL ONE (09:24)
[2022-04-16] MEDS ORDERED: LIDOCAINE PF 2% 5 ML (XYLOCAINE) VIAL ONE (09:34)
[2022-04-16] MEDS ORDERED: proPOfol 200 MG/20 ML (DIPRIVAN) VIAL IV ONE (09:34)
[2022-04-16] MEDS ORDERED: fentaNYL INJ 100 MCG/2 ML AMP ONE (09:35)
[2022-04-16] MEDS ORDERED: MIDAZOLAM 2 MG/2 ML (VERSED) VIAL ONE (09:35)
[2022-04-16] MEDS ORDERED: ONDANSETRON 4 MG/2 ML (SDV) Z0FRAN ONE (10:24)
[2022-04-16] MEDS ORDERED: KETOROLAC 30 MG/ML VIAL ONE (10:24)
[2022-04-16] MEDS ORDERED: SEVOFLURANE (ULTANE) 15 ML INHAL SOLN ONE (10:26)
--- NOTE | 2022-04-16 14:35 | Anesthesia-General Post-Op ---
General Patient Condition Mental Status/LOC: Same as Preop Cardiovascular: Satisfactory Nausea/Vomiting: Absent Respiratory: Satisfactory Pain: Controlled Complications: Absent Post Op Complications Complications None Follow Up Care/Instructions Patient Instructions None needed. Anesthesia/Patient Condition Patient Condition Patient is doing well, no complaints, stable vital signs, no apparent adverse anesthesia problems. No complications reported per nursing. MARILY ZUNIGA CRNA Apr 16, 2022 14:35
--- NOTE | 2022-04-16 20:31 | OPERATIVE REPORT ---
DATE OF SERVICE: 04/16/2022 PREOPERATIVE DIAGNOSIS: Left wrist volar ganglion cyst. POSTOPERATIVE DIAGNOSIS: Left wrist volar ganglion cyst. PROCEDURE: Left wrist volar ganglion cyst excision. SURGEON: Kvng Nunes M.D. WASHING MACHINE INSTALLER: Quan Wallace, who assisted throughout the procedure and closed the incision. ANESTHESIA: General endotracheal by Laura Malloy CRNA. TOURNIQUET TIME: 9 minutes at 250 mmHg. ESTIMATED BLOOD LOSS: Minimal. DRAINS: None. COMPLICATIONS: None. POSTOPERATIVE PLAN: Routine protocol. The patient was transferred to the recovery room in awake and stable condition. STATEMENT OF MEDICAL NECESSITY: The patient is a 21-year-old female with complaints of left wrist pain. She had an approximately 1 cm cystic structure in the volar aspect of her left wrist. She reported this was interfering with her activities of daily living. Because of this, we elected to proceed with surgical intervention. DESCRIPTION OF PROCEDURE: After risks and benefits of the procedure were discussed and questions were answered and informed consent was signed and placed on the chart. The operative site was confirmed in the preoperative holding and initialed by surgeon. The patient was then transferred to the operating room. After adequate levels of general endotracheal anesthetic was obtained, a timeout was called, confirming the operative site. The left upper extremity was prepped and draped in the usual sterile fashion. A longitudinal incision was made over the cyst, which was exposed to the volar wrist capsule and then excised off of the capsule. The edges were cauterized and then closed with 4-0 Vicryl in a [id number] interrupted fashion. Hemostasis was obtained with cautery. The tourniquet was deflated. Her fingers had brisk capillary refill. Pressure and cautery were used for hemostasis. The wound was further irrigated and then closed with 4-0 nylon in a vertical mattress interrupted fashion. The incision was infiltrated with plain Marcaine. A soft dressing and splint were applied and the patient was transferred to recovery room in awake and stable condition. Job ID: [id number] DocumentID: [id number] Dictated Date: 04/16/2022 10:26:25 Estate Administrator Date: 04/16/2022 20:29:00 Dictated By: KVNG NUNES MD
== END 2022-04-16 12:55 | disposition home or self-care (01) ==
LOC: SDC 08:28
PROVIDERS: ATTEND Orthopaedic Surgery
DX: M67.432 Ganglion, left wrist (principal); J45.909 Unspecified asthma, uncomplicated
CPT/HCPCS: 84703; 87081

== ENCOUNTER → 2022-07-01 | Outpatient (CLI) | payer MEDICAID ==
[~2022-07-01] MED LIST changes: -HYDROcodone/APAP 7.5 MG/325 MG (LORTAB, LORCET PLUS) TABLET PO PRN
== END ==
LOC: CARD 08:33
PROVIDERS: ATTEND Internal Medicine Critical Care Medicine
DX: I51.7 Cardiomegaly (principal); I34.0 Nonrheumatic mitral (valve) insufficiency; I27.23 Pulmonary hypertension due to lung diseases and hypoxia
CPT/HCPCS: 93306